=== PATIENT | male | born 1980 | race Two or more races ===

== ENCOUNTER 2020-11-11 23:50 | Emergency (ER) | payer BC, OTHER ==
[~2020-11-11] VITALS: Ht 165.1 cm; Wt 94.3 kg
[2020-11-12 02:45] VITALS: BP 118/62
[2020-11-16] MEDS ORDERED: ALBU108A5 INH (02:40)
[2020-11-16] MEDS ORDERED: BENZ200C64 PO (02:40)
[2020-11-16] MEDS ORDERED: ENAL10TA13 PO (02:40)
[2020-11-16] MEDS ORDERED: PRED20TA2 PO (02:40)
[2020-11-16] MEDS ORDERED: ACET-6 PO (02:40)
== END 2020-11-12 03:00 | disposition home or self-care (01) ==
LOC: ER 23:50
DX: J06.9 Acute upper respiratory infection, unspecified (principal); R06.02 Shortness of breath; L74.0 Miliaria rubra; R42 Dizziness and giddiness; E66.9 Obesity, unspecified; Z68.34 Body mass index [BMI] 34.0-34.9, adult; Z20.822 Contact with and (suspected) exposure to COVID-19
CPT/HCPCS: 36415; 71045; 87426